=== PATIENT | male | born 1955 | race Caucasian/White ===

== ENCOUNTER 2018-01-03 07:04 | Day surgery (SDC) | payer OTHER ==
[2018-01-02 14:39] VITALS: BMI 30.7
--- NOTE | 2018-01-02 22:44 | HP ---
This is a 62-year-old male who comes for colonoscopy for colon cancer screening. The patient has no specific symptoms. He has normal . No family history of colon cancer. ALLERGIES: None. SOCIAL HISTORY: The patient smokes. He drinks alcohol socially. MEDICAL ILLNESSES: 1. Coronary artery disease, stretched status and placement. 2. Chronic obstructive pulmonary disease. 3. Hypertension. 4. . PHYSICAL EXAMINATION: VITAL SIGNS: Pulse is 70, blood pressure 130/80. HEENT: Conjunctivae clear. CARDIOVASCULAR: First and second heart sounds normal. LUNGS: Clear to auscultation. ABDOMEN: Soft. No organomegaly. No tenderness. No masses. Bowel sounds are normal. EXTREMITIES: Reveal no edema. ADMITTING DIAGNOSES: A 62-year-old male comes for colonoscopy for colon cancer screening.
[2018-01-03] MEDS ORDERED: PROPOFOL 200 MG/20 ML VIAL ONE (13:33)
--- NOTE | 2018-01-07 10:59 | OP ---
DATE OF PROCEDURE: 01/03/2018 SURGEON: Gracie Jensen M.D. OPERATIVE PROCEDURE: Colonoscopy with cautery. PREOPERATIVE DIAGNOSIS: Colon cancer screening. POSTOPERATIVE DIAGNOSES: 1. Diffuse colonic diverticulosis, mild, but seen all the way to the right colon. 2. Broad based sessile polyp descending colon, status post cautery with good hemostasis. 3. Large sessile polyp sigmoid colon, status post snare cautery. The polyp was too large and I coul d not remove completely. Two large pieces removed. PROCEDURE IN DETAIL: The patient was placed on his left lateral position and was given sedation by A nesthesia Department. A rectal exam was performed and the exam was normal. A Pentax video colonosco pe was introduced into the rectum and advanced all the way to the cecum. The prep was excellent. Th e mucosa appeared normal throughout the colon. The exam was very difficult because of the redundant colon. Also, the belly breathing. This constant movement affected the quality of the exam because o f the belly breathing. The appendical opening, ileocecal valve, cecum, no polyps seen. The ascendin g colon showed occasional diverticula. The hepatic flexure, transverse colon showed pathology for oc casional diverticula. Over the descending colon the patient found to have a broad-based sessile poly p. This was removed without difficulty with a snare cautery. There was another long flat polyp clos e the same location could not be removed and also very difficult to visualize. Sometimes you could s ee it and sometimes not. The scope was advanced back and forth several times in the sigmoid colon, a ll the way to transverse colon several times. Although once or twice I could visualize a polyp at th e , the patient and I could not get a good hold of the polyp. There was a large polyp in the sigmoid colon area. This was removed piecemeal with 2 large pieces. The patient has some more po lyps left behind. The procedure was very lengthy, it was almost an hour and 25 minutes spent with e procedure because of the belly breathing and constant movement and not able to really get good hold of the polyp. RECOMMENDATIONS: I did meet with Mr. Rocha and son-in-law. I explained to them about the poly pectomy. He was advised to start a clear liquid diet today and start a regular diet tomorrow if he h as no bleeding or abdominal pain. He is advised to go to the ER if he starts having any bleeding. Ambrosio denney is also informed that he will probably need a repeat colonoscopy in the next 4-6 weeks because I wa s not able to remove the polyp altogether.
--- NOTE | 2018-01-07 15:05 | OP ---
DATE OF PROCEDURE: 01/03/2018 SURGEON: Sea Osorio OPERATIVE PROCEDURE: Colonoscopy with polypectomy. PREOPERATIVE DIAGNOSIS: A 62-year-old male undergoing colonoscopy for colon cancer screeni ng. POSTOPERATIVE DIAGNOSES: 1. Large broad based sessile polyp descending colon, status post polypectomy. 2. Large broad based sessile pedunculated polyp sigmoid colon, status post snare cautery. The polyp was very large and I could not remove the entire polyp. The polyp was removed piecemeal, but still have a small piece that remained. 3. A broad based sessile polyp around the splenic flexure area, possibly transverse colon nodule. 4. Diverticular disease. PROCEDURE IN DETAIL: The patient was placed on his left lateral position and was given sedation by A nesthesia Department. A rectal exam was done before the scope was advanced into the rectum. No lesi ons felt on rectal exam. A Pentax video colonoscope was introduced into the rectum and advanced all the way in the cecum. The prep was very good. The exam was difficult because of the tortuous colon and also patient tended to breathe with the abdominal wall and there was constant movement. The appe ndical opening, ileocecal valve, cecum, no pathology seen. Withdrawal from the cecum, ascending colo n and hepatic flexure, no pathology seen. The transverse colon, lesion. Over the distal trans verse colon, and splenic flexure area the patient was found to have a very broad based sessile polyp. The polyp was very difficult to locate. Although the polyp subsequently, when I attempted to remov e it, I could not really locate the polyp. The scope advanced back and forth several times from the sigmoid colon all the way to the cecum. The scope was carefully withdrawn. Again, I could not reall y locate the polyp. He had a very large broad based sessile polyp in the descending colon. This was removed with snare cautery. He had another large polyp, a broad based thick stalk in the sigmoid co susana area. The polyp was too large and was difficult to remove the entire polyp. The polyp was remov ed piecemeal. I made 2 attempts to remove, but still some of polyp was left behind. He did have sig moid diverticula. Rectum revealed hemorrhoids. The procedure was very prolonged and very lengthy an d it was over an hour and a half. Due to the above reason, I elected to terminate the procedure and bring the patient back in a couple of months for repeat colonoscopy. DISCHARGE PLANNING: This is a 62-year-old male who came in for a colonoscopy for cancer nathen collier. Underwent colonoscopy with polypectomy. DISCHARGE RECOMMENDATIONS: 1. The patient was advised to call me if he develops abdominal pain, hematochezia. 2. To come back to clinic in 2 weeks. 3. Repeat colonoscopy in 2 months.
== END 2018-01-03 12:03 | disposition home or self-care (01) ==
LOC: SDC 07:04
PROVIDERS: ATTEND Internal Medicine Gastroenterology
PROC: 0DBM8ZX Excision of Descending Colon, Via Natural or Artificial Opening Endoscopic, Diagnostic (ICD-10-PCS; principal; 2018-01-03)
PROC: 0DBN8ZX Excision of Sigmoid Colon, Via Natural or Artificial Opening Endoscopic, Diagnostic (ICD-10-PCS; principal; 2018-01-03)
DX: Z12.11 Encounter for screening for malignant neoplasm of colon (principal); D12.4 Benign neoplasm of descending colon; D12.5 Benign neoplasm of sigmoid colon; K57.30 Diverticulosis of large intestine without perforation or abscess without bleeding; K64.9 Unspecified hemorrhoids; F17.200 Nicotine dependence, unspecified, uncomplicated; I25.10 Atherosclerotic heart disease of native coronary artery without angina pectoris; I10 Essential (primary) hypertension; J44.9 Chronic obstructive pulmonary disease, unspecified; Z79.02 Long term (current) use of antithrombotics/antiplatelets; Z79.899 Other long term (current) drug therapy
CPT/HCPCS: 88305

== ENCOUNTER 2018-05-16 06:46 | Day surgery (SDC) | payer OTHER ==
[2018-05-15 11:37] VITALS: BMI 31.4
--- NOTE | 2018-05-15 22:04 | HP ---
HISTORY OF PRESENT ILLNESS: This is a 63-year-old male referred to me by Dr. Humphries for a colonoscopy for colon cancer screening. He had done colonoscopy on 12/13/2017 and was found to have 2 large sessile polyps. One was in the sigmoid colon and another one above the splenic flexure, distal transverse colon. The patient had one of his colon polyps removed. The other polyp could not be taken completely. The polyp is an adenoma and villous adenomas. The patient was taken clopidogrel for his atrial fibrillation. This was stopped about 5 days ago. The patient comes in for repeat colonoscopy because of the colon polyps not removed completely. ALLERGIES: NONE. MEDICAL ILLNESSES: 1. Atrial fibrillation. 2. Hypertension. 3. COPD.. 5. Arthritis. PHYSICAL EXAMINATION: GENERAL: He is heavyset, appears comfortable. VITAL SIGNS: Pulse is 70. Blood pressure 130/70. HEENT: Conjunctivae clear. NECK: Supple. No adenitis or thyromegaly noted. CARDIOVASCULAR: First and second heart sounds normal. LUNGS: Clear to auscultation. ABDOMEN: Soft. No organomegaly. No tenderness. No masses. ADMITTING: Colon polyp. PLAN: Colonoscopy and polypectomy. Job ID: [id number] MTDD
--- NOTE | 2018-05-16 10:31 | OP ---
DATE OF PROCEDURE: 05/16/2018 OPERATIVE PROCEDURE: 1. Colonoscopy and polypectomy. 2. Colonoscopy with 10-Trinidadian heater probe therapy at polypectomy site. PREOPERATIVE DIAGNOSIS: Colon polyp. POSTOPERATIVE DIAGNOSES: 1. Scattered sigmoid diverticular disease. 2. Hemorrhoids. 3. Broad-based sessile polyp, sigmoid colon, status post snare cautery with good hemostasis. 4. Sessile polyp, sigmoid colon, status post snare cautery with good hemostasis. 5. Very large broad-based sessile polyp, transverse colon, status post snare cautery with mild bleeding after polypectomy. The polypectomy site was cauterized with a 10-Trinidadian heater probe. DESCRIPTION OF PROCEDURE: The patient was placed on his left lateral position and was given sedation by Anesthesia Department. A rectal exam was done before the scope was advanced into the rectum. No lesions felt on rectal exam. A Pentax video colonoscope was introduced into the rectum and advanced all the way to the cecum. The patient had some pockets of recent stool. The mucosa appears normal. The ileocecal area, cecum, ascending colon, hepatic flexure, no pathology seen. The transverse colon showed a broad-based sessile polyp. This was easily removed with snare cautery; however, the marginal polypectomy site did not cauterize very well and had mild bleeding seen. This was cauterized with a 10-Trinidadian heater probe with good hemostasis. The remainder of transverse colon, splenic flexure, descending colon, no pathology seen. There was a very large broad-based sessile polyp over the sigmoid colon area around 40 cm from the margin. This was removed with snare cautery with good hemostasis. Developed small polyp in same location. This was again removed by snare cautery. DISCHARGE PLANNING: This is a 63-year-old male with previous colonoscopy and polypectomy. The patient had a very large polyp in the sigmoid colon area, which could not be completely removed. The patient came for followup colonoscopy and underwent colonoscopy and polypectomy. DISCHARGE RECOMMENDATIONS: 1. May resume his Plavix as before, but there is a risk of bleeding because of the large broad-based sessile polyp. 2. The patient was advised to call me if he develops any abdominal pain, hematochezia. In the absence of any of the symptoms, come back to me in 2 weeks. Job ID: [id number]
[2018-05-16] MEDS ORDERED: PROPOFOL 200 MG/20 ML VIAL ONE (14:33)
[2018-05-16] MEDS ORDERED: Lidocaine 1% PF 5 ML VIAL ONE (14:33)
== END 2018-05-16 10:15 | disposition home or self-care (01) ==
LOC: SDC 06:46
PROVIDERS: ATTEND Internal Medicine Gastroenterology
PROC: 0DBN8ZX Excision of Sigmoid Colon, Via Natural or Artificial Opening Endoscopic, Diagnostic (ICD-10-PCS; principal; 2018-05-16)
PROC: 0DBL8ZX Excision of Transverse Colon, Via Natural or Artificial Opening Endoscopic, Diagnostic (ICD-10-PCS; principal; 2018-05-16)
DX: Z12.11 Encounter for screening for malignant neoplasm of colon (principal); D12.5 Benign neoplasm of sigmoid colon; D12.3 Benign neoplasm of transverse colon; K57.30 Diverticulosis of large intestine without perforation or abscess without bleeding; K64.9 Unspecified hemorrhoids; I48.91 Unspecified atrial fibrillation; I10 Essential (primary) hypertension; J44.9 Chronic obstructive pulmonary disease, unspecified; M19.90 Unspecified osteoarthritis, unspecified site; Z86.010 Personal history of colon polyps; Z79.02 Long term (current) use of antithrombotics/antiplatelets; Z79.899 Other long term (current) drug therapy
CPT/HCPCS: 88305; J2001; J2704

== ENCOUNTER 2018-09-30 08:20 | Inpatient (IN) | payer OTHER ==
--- NOTE | 2018-09-30 08:32 | CT ---
CT Brain WO Con: 09/30/2018 12:00 AM CLINICAL HISTORY: Level 1 stroke; right-sided weakness; last seen normal at 0700 hours this morning. IMAGING TECHNIQUE: Multiple CT images were obtained of the brain without IV contrast. COMPARISON: None. FINDINGS: Infarct: No acute infarct is evident. There is mild chronic small vessel white matter ischemic alfaro e. Hemorrhage: None.. Hydrocephalus: None.. Basal cisterns: Normal.. Cerebral parenchyma: There is a prominent perivascular space versus remote inferior right globus pall idus lacunar infarct seen on the right. Small calcifications are seen within the globus pallidus.. Midline shift: None.. Cerebellum: Normal. Brainstem: Normal. OTHER: Calvarium: Intact.. Visualized Paranasal sinuses: There is mild mucosal thickening within the ethmoid air cells.. Extracranial soft tissues:Normal. IMPRESSION: 1. No acute intracranial abnormality. 2. Findings called to Dr. Estrada at 8:27 AM on September 30, 2018. 3. Mild chronic small vessel white matter ischemic change. 4. Mild paranasal sinus disease
[2018-09-30 08:46] LABS: #Basophils 0.1 thou/uL (0.0-0.2); #Eosinphils 0.4 thou/uL (0.0-0.7); #Lymphocytes 2.4 thou/uL (1.20-3.40); #Monocytes 0.6 thou/uL (0.11-0.59); #Neutrophils 7.2 thou/uL (1.40-6.50); %Basophils 1.2 % (0.0-1.0); %Eosinophils 3.9 % (0.0-10.0); %Monocytes 5.4 % (0.0-10.0); %Neutrophils 67.5 % (42.0-75.0); Hemoglobin 15.9 g/dL (14.0-18.0); Mean Corpuscular HGB CONC 32.6 g/dL (32.0-36.0); Mean Corpuscular Hemoglobin 30.3 pg (27.0-31.0); Mean Corpuscular Volume 92.8 fL (78.0-98.0); Mean Platelet Volume 7.3 fL (7.4-10.4); Platelet Count 216 thou/uL (130-400); RBC Distribution Width 12.7 % (11.5-14.5); Red Blood Cell (RBC) Count 5.25 mill/uL (4.70-6.10); White Blood Cell (WBC) Count 10.7 thou/uL (4.8-10.8)
[2018-09-30 08:50] LABS: PTT 28.1 SEC (22.9-36.1)
[2018-09-30 08:59] LABS: ALT (SGPT) 17 U/L (8-55); AST (SGOT) 15 U/L (5-34); Albumin 3.9 g/dL (3.4-4.8); Alkaline Phosphatase 63 U/L (40-150); Anion Gap 12 mmol/L (10-20); BUN (Urea Nitrogen) 20 mg/dL (8.4-25.7); Bilirubin, Total 0.7 mg/dL (0.2-1.2); CK (CPK) 82 U/L (30-200); Calc. Creatinine Clearance 0 mL/min (70-130); Calcium 9.9 mg/dL (7.8-10.44); Carbon Dioxide 25 mmol/L (23-31); Chloride 105 mmol/L (98-107); Estimated GFR-MDRD 46; Globulin 2.8 g/dL (2.4-3.5); Glucose 116 mg/dL (80-115); Potassium 4.9 mmol/L (3.5-5.1); Protein, Total 6.7 g/dL (5.8-8.1); Sodium 137 mmol/L (136-145)
--- NOTE | 2018-09-30 09:09 | RAD ---
PORTABLE CHEST ONE VIEW: 09/30/2018 8:58 a.m. HISTORY: Altered mental status. Right-sided numbness. COMPARISON: 12/29/2012 FINDINGS: Left-sided pacemaker device remains in place. The heart size is normal. Evidence of old granulomato us disease is again seen. The lungs are well expanded without lobar consolidation, pneumothoraces, f rank pulmonary edema, or pleural effusions. IMPRESSION: No acute process. POS: TPC
[2018-09-30] MEDS ORDERED: Aspirin Chewable 81 MG TAB ONE (09:12)
--- NOTE | 2018-09-30 09:38 | CT ---
CT ANGIOGRAM HEAD WITH CONTRAST: CT ANGIOGRAM NECK WITH CONTRAST: 09/30/2018 8:36 a.m. HISTORY: A 63-year-old male with acute stroke symptoms: right upper extremity weakness and hypesthesia. This level I stroke alert protocol result was called by Dr. Bolivar to Dr. Estrada at 9:06 a.m. on 10/01/19 19. The right parotid mass and recommendation for ENT consultation, and the severe carotid stenoses, were discussed. TECHNIQUE: IV injection of 100 mL of Isovue-370. Arterial bolus chasing technique scan performed from slightly superior to the cornelia to the vertex of the head. Coronal and sagittal 3D MIP reconstructions, and original axial images, evaluated. FINDINGS: There is a well circumscribed, homogeneously moderately hyperdense mass at the inferior aspect of the superficial lobe of the right parotid gland. There is an exophytic component protruding inferior an d medial to the parotid gland. The mass measures approximately 3.7 x 3.3 x 4.2 cm. No cervical lymp hadenopathy. Extensive calcified and noncalcified atheromatous plaque visualized in most of the major arteries of the neck. Streak artifact from adjacent dense IV contrast bolus in the left subclavian vein and left brachiocep halic vein, and streak artifact from left subclavian pacemaker leads and generator, result in poor vi sualization of much of the left subclavian artery. Heavy atherosclerotic calcified plaque throughout the proximal to mid left subclavian artery. Brachiocephalic: Heavily calcified plaque. No high-grade stenosis identified. Right subclavian: Heavily calcified plaque with mild to moderate stenosis, proximally. Right common carotid: Multifocal plaque scattered throughout. No high-grade stenosis identified. M ild stenosis at origin. Right internal carotid: Calcified and noncalcified plaque causes irregularity and mild stenosis prox imally. Noncalcified plaque causes focal severe stenosis, located at a point approximately 1 cm dist al to the origin. The rest of the mid and distal cervical right internal carotid artery is diffusely narrow in caliber. Right carotid siphon: Heavily calcified atheromatous plaque makes it difficult to evaluate the calib er of the vessel. Left common carotid: Bovine common origin with brachiocephalic from aortic arch. Scattered calcifie d plaque throughout. Left internal carotid: Heavily calcified plaque at the origin of the internal carotid artery, extend ing approximately 2 cm distally. Estimated approximately 75% luminal stenosis at the proximal left in ternal carotid, a distance of approximately 0.5 to 1 cm from origin. The rest of the cervical left i nternal carotid has normal caliber. Left carotid siphon: Heavily calcified plaque makes it difficult to evaluate diameter. Right vertebral: Origin difficult to evaluate because of heavily calcified plaque at the brachioceph alic artery. Possible severe stenosis at origin. No high-grade stenosis in the rest of the cervical right vertebral. Left vertebral: Origin difficult to evaluate. Possible severe stenosis at origin. No high-grade st enosis in the rest of the cervical left vertebral. Basilar: Normal caliber. Intracranial vertebral: No focal short-segment acquired high-grade stenosis. Posterior cerebrals: Normal on the right. origin but otherwise normal on left. Superior cerebellars: Visualized on the right. Difficult to identify on the left. Right MCA: No occlusion or thrombus in the M1 segment. Left MCA: No occlusion or thrombus identified in the M1 segment. Bilateral ACAs: No high-grade stenosis identified at the A1 and A2 segments. Anterior communicating artery patent. IMPRESSION: 1. Scattered severe atherosclerotic disease. 2. Severe stenosis at the proximal right internal carotid, estimated to be approximately 75% to 90%. The rest of the cervical right internal carotid is diffusely moderately-severely narrow in caliber. 3. Severe stenosis at the proximal left internal carotid, estimated to be approximately 75%. 4. No M1 segment occlusion or thrombosis. 5. 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 Recommend otolaryngology consul tatleatha. CODE CR POS: CET
[2018-09-30 10:54] LABS: Bilirubin Negative (Negative); Blood, Urine Negative (Negative); Glucose, Urine (Dipstick) Negative (Negative); Leukocyte Negative (Negative); Nitrite Negative (Negative); Protein, Urine (Dipstick) Negative (Neg-Trace); Urobilinogen 0.2 mg/dL (Less than 2)
[2018-09-30 10:56] LABS: Clarity Clear (Clear)
[2018-09-30] MEDS ORDERED: Ondansetron ODT 4 MG TAB PO PRN (11:17)
[2018-09-30] MEDS ORDERED: Acetaminophen 325 MG TAB PO PRN (11:17)
[2018-09-30 12:06] LABS: Cardiac Risk 4.3 (Less than 4.5)
[2018-09-30 12:10] VITALS: BMI 30.6
[2018-09-30] MEDS ORDERED: ISOVUE-370 76%-LOCM 1 ML ONE (13:04)
--- NOTE | 2018-09-30 13:36 | PDOC.FPRHP ---
- History of Present Illness Chief Complaint: Right sided numbness and tingling History of Present Illness: Patient is a 63yo M with PMHx of HLD, HTN, multiple kidney stents, and a defibrillator non-compatible with MRI that presented today after the onset of right-sided numbness and tingling. He states this began at 630am this morning while he was lying on the couch awake. He states his right arm began to feel different, like it had fallen asleep, and then he noticed the same feeling in his right leg, and then the right side of his face. He denies noticing any weakness. He denies that anything like this has ever happened before. 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 CXR: no acute process trop neg x1, glucose wnl, 324mg aspirin, 500ml NS - Allergies/Adverse Reactions Allergies Allergy/AdvReac Type Severity Reaction Status Date / Time No Known Allergies Allergy Verified 09/30/18 11:52 - Home Medications Medication Instructions Recorded Confirmed Type Atorvastatin Calcium 20 mg PO HS 01/02/18 09/30/18 History Carvedilol 12.5 mg PO BID 01/02/18 09/30/18 History Clopidogrel Bisulfate [Clopidogrel] 1 tab PO DAILY 01/02/18 09/30/18 History Furosemide 1 tab PO ASDIR 01/02/18 09/30/18 History Umeclidinium Brm/Vilanterol Tr 1 inh IH DAILY 01/02/18 09/30/18 History [Anoro Ellipta] Ubidecarenone [Co Q-10] 100 mg PO DAILY 05/15/18 09/30/18 History Candesartan Cilexetil 32 mg PO DAILY 09/30/18 09/30/18 History - History PMHx: CHF, HTN, PVD, HLD PSHx: Left inguinal hernia repair, Renal stents, Defibrillator FHx:Brother:stroke Social: Smokes 1/2 PPD for 50 years, denies alcohol and drug use - Review of Systems General: denies: fever/chills, fatigue Eyes: denies: eye pain, vision changes ENT: denies: nasal congestion, rhinorrhea Respiratory: denies: shortness of breath Cardiovascular: denies: chest pain, palpitation Gastrointestinal: denies: nausea, vomiting Skin: denies: rashes, jaundice Musculoskeletal: denies: pain Neurological: reports: numbness. denies: weakness Psychological: denies: anxiety, depression - Vital signs BP: [135/72] HR: [71] RR: [18] Tmax: [98.1] Pox: [97]% on [RA] Wt: [86.046kg] - Physical Exam Constitutional: NAD, awake, alert and oriented HEENT: normocephalic and atraumatic, EOMI, no scleral icterus, grossly normal hearing Chest: no-tender to palpation Heart: RRR, normal S1/S2, no murmurs/rubs/gallops Lungs: CTAB, no respiratory distress, good air movement Abdomen: soft, non-tender, bowel sounds present -Musculoskeletal: RUE 4/5, LUE 5/5 RLE 4/5, LLE 5/5 -Neurological: Cranial nerve V1, V2, V3 parasthesias/numbness on right Parasthesias/numbness noted on entire right arm, entire right leg Skin: no rash/lesions, capillary refill <2 seconds Heme/Lymphatic: no unusual bruising or bleeding Psychiatric: normal mood and affect FMR H&P: Results - Labs Result Diagrams: 09/30/18 08:24 09/30/18 08:24 Lab results: WBC 10.7 thou/uL (4.8-10.8) 09/30/18 08:24 Hgb 15.9 g/dL (14.0-18.0) 09/30/18 08:24 Hct 48.7 % (42.0-52.0) 09/30/18 08:24 MCV 92.8 fL (78.0-98.0) 09/30/18 08:24 Plt Count 216 thou/uL (130-400) 09/30/18 08:24 Neutrophils % 67.5 % (42.0-75.0) 09/30/18 08:24 Sodium 137 mmol/L (136-145) 09/30/18 08:24 Potassium 4.9 mmol/L (3.5-5.1) 09/30/18 08:24 Chloride 105 mmol/L (98-107) 09/30/18 08:24 Carbon Dioxide 25 mmol/L (23-31) 09/30/18 08:24 BUN 20 mg/dL (8.4-25.7) 09/30/18 08:24 Creatinine 1.54 mg/dL (0.7-1.3) H 09/30/18 08:24 Glucose 116 mg/dL (80-115) H 09/30/18 08:24 Calcium 9.9 mg/dL (7.8-10.44) 09/30/18 08:24 Total Bilirubin 0.7 mg/dL (0.2-1.2) 09/30/18 08:24 AST 15 U/L (5-34) 09/30/18 08:24 ALT 17 U/L (8-55) 09/30/18 08:24 Alkaline Phosphatase 63 U/L (40-150) 09/30/18 08:24 Creatine Kinase 82 U/L (30-200) 09/30/18 08:24 B-Natriuretic Peptide 61.2 pg/mL (0-100) 09/30/18 08:24 Serum Total Protein 6.7 g/dL (5.8-8.1) 09/30/18 08:24 Albumin 3.9 g/dL (3.4-4.8) 09/30/18 08:24 Lipase 16 U/L (8-78) 09/30/18 08:24 Urine Ketones Negative mg/dL (Negative) 09/30/18 10:27 Urine Blood Negative (Negative) 09/30/18 10:27 Urine Nitrite Negative (Negative) 09/30/18 10:27 Ur Leukocyte Esterase Negative (Negative) 09/30/18 10:27 Trop: 0.018 PTT:13 INR: 1.0 - Radiology Interpretation CT scan - head Status: report reviewed by me Additional comment: CT brain without contrast: no acute intracranial abnormality CTA head/neck: severe scattered atherosclerotic disease, severe stenosis of the proximal left internal carotid, no M1 occlusion or thrombosis, 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 Chest x-ray Status: report reviewed by me (CXR: no acute process) FMR H&P: A/P - Problem List (1) CVA (cerebral vascular accident) Current Visit: Yes Status: Acute Code(s): I63.9 - CEREBRAL INFARCTION, UNSPECIFIED (2) CHF (congestive heart failure) Current Visit: Yes Status: Acute Code(s): I50.9 - HEART FAILURE, UNSPECIFIED (3) HTN (hypertension) Current Visit: Yes Status: Acute Code(s): I10 - ESSENTIAL (PRIMARY) HYPERTENSION (4) HLD (hyperlipidemia) Current Visit: Yes Status: Acute Code(s): E78.5 - HYPERLIPIDEMIA, UNSPECIFIED (5) Parotid mass Current Visit: Yes Status: Acute Code(s): K11.8 - OTHER DISEASES OF SALIVARY GLANDS - Plan 63M with PMHx of HTN, HLD, multiple kidney stents, and CHF with a defibrillator presented with right-sided numbness and parasthesias s/p CVA #CVA -no reported prior CVA -CT head: no acute intracranial abnormality -CTA head/neck demonstrated scattered severe atherosclerotic disease, severe stenosis of the proximal right internal carotid (75-90%), severe stenosis of cervical right internal carotid, severe stenosis of the proximal left internal carotid (75%) -given aspirin and NS in the ED -NIHSS score 1, Dr. Farmer determined not candidate for TPA -no MR brain 2/2 defibrillator non-compatible with MRI -allow for permissive HTN -PRN labetalol for SBP>220 -high intensity statin, total cholesterol 120 -plavix -aspirin -CV sx consulted, appreciate recs -NPO, if no sx planned will alter diet -CBC/CMP in am -Echo ordered, pending -TSH 1.02, wnl #parotid mass -incidental parotid mass seen on CT head -patient has no complaints -recommend f/u outpatient #HTN -hold home meds for permissive HTN -see above #HLD -high intensity statin #CHF with defibrillator -on tele obs -patient denies any chest pain -continue to monitor #kidney stents -creatinine 1.54 -BUN 20 -GFR 46 -will monitor CMP tmrw Fluids: 100ml/hr NS DVT proph: SCDs Diet: NPO Code Status: full code Dispo: obs for CVA workup FMR H&P: Upper Level - Plan Date/Time: 09/30/18 1331 63 yo male presents with right sided numbness, with CTA evidence concerning for severe stenosis in bilateral ICAs admitted for a stroke rule out. BP:135/72 HR: 71RR: 18Tmax: 98.1 Pox: 97% on Wt: 86.046kg PE: Decreased sensation right face, arm, leg; strength 5/5; CN intact Decreased BS bilaterallyt Distant heart sounds, RRR Abdomen obese, nontender Labs: Cr 1.[address] Hd w/o-negative for a hemorrhagic cva CTA Head and Neck-evidence of diffuse stenosis, moderate to severe in the right and left ICA A/P: CVA rule out- -New right sided numbness and tingling face=arm=leg with CTA head and neck showing evidence of moderate to severe stenosis of ICA. Will admit to inpatient stroke, and consult CV surgery. Neurosurgery consulted in the ED and pt not a TPA candidate. Pt not able to get MRI d/t having a defibrillator. Will obtain a lipid profile, tsh, mag, phosph, echo, and repeat labs in the AM. Pt currently on Plavix and aspirin for a hx of PAD with stents placed. No prior hx of CVA or MS. PMhx of HTN, PAD, HLD. NIH score of 1, not a TPA candidate. Will place on high intensity statin and continue aspirin and Plavix. parotid mass -incidental parotid mass seen on CT head -recommend outpatient follow-up with otolaryngology HTN -allow for permissive hypertension -labetalol prn bp>220 systolic HLD -lipid profile and increast statin to high intensity CHF with defibrillator -unable to obtain MRI 2/2 defibrillator Starr Elam MD, PGY-3 have evaluated this patient and agree with findings/ plan as outlined by tax services intern resident. Pertinent changes/additions are listed here. Addendum - Attending - Attending Attestation Date/Time: 09/30/18 1122 I personally evaluated the patient and discussed the management with Dr. Garcia. I agree with the History, Examination, Assessment and Plan documented above with any addition or exceptions noted below. The patient presented with acute onset of right sided tingling and numbness at 6 :30 a.m. The patient states he feels like it is worsening. Pt was nota candidate for TPA. CTA shows stenosis in bilateral ICA's. Will consult CV surgery. Pt will be admitted to stroke and stroke team will be consulted. Start statin. CT also showed a parotid mass, will need ent follow-up. Pt has a defibrillator and cannot have an MRI. Will allow for permissive hypertension. Pt with normal strength on exam. Decreased sensation right vs. left.
[2018-09-30] MEDS: Nicotine 14 MG PATCH TD SCH (14:29)
[2018-09-30] MEDS: Lactated Ringer's 1,000 ML IV SCH (14:30)
[2018-09-30] MEDS ORDERED: Labetalol HCl 100 MG/20 ML VIAL SLOW IVP PRN (14:56)
[2018-09-30] MEDS ORDERED: Clopidogrel Bisulfate 75 MG TAB PO SCH (15:15)
--- NOTE | 2018-09-30 20:43 | PDOC.EVN ---
Event Note - Event Note Event Note: Nurse reported Dr. Bae did not need pt to be NPO. Will not hold meals at this time. Ricardo Aranda, DO
[2018-09-30] MEDS: Atorvastatin Calcium 40 MG TAB PO SCH (21:14)
[2018-10-01] MEDS: Lactated Ringer's 1,000 ML IV SCH ×3 (00:31→21:07)
[2018-10-01 04:54] LABS: #Basophils 0.1 thou/uL (0.0-0.2); #Eosinphils 0.3 thou/uL (0.0-0.7); #Lymphocytes 2.6 thou/uL (1.20-3.40); #Monocytes 0.6 thou/uL (0.11-0.59); #Neutrophils 5.4 thou/uL (1.40-6.50); %Basophils 0.9 % (0.0-1.0); %Eosinophils 3.4 % (0.0-10.0); %Lymphocytes 29.1 % (21.0-51.0); %Monocytes 6.9 % (0.0-10.0); %Neutrophils 59.8 % (42.0-75.0); Hemoglobin 14.8 g/dL (14.0-18.0); Mean Corpuscular HGB CONC 32.4 g/dL (32.0-36.0); Mean Corpuscular Volume 92.4 fL (78.0-98.0); Mean Platelet Volume 7.4 fL (7.4-10.4); Platelet Count 201 thou/uL (130-400); RBC Distribution Width 12.5 % (11.5-14.5); Red Blood Cell (RBC) Count 4.94 mill/uL (4.70-6.10); White Blood Cell (WBC) Count 9.1 thou/uL (4.8-10.8)
[2018-10-01 05:18] LABS: ALT (SGPT) 13 U/L (8-55); AST (SGOT) 14 U/L (5-34); Albumin 3.5 g/dL (3.4-4.8); Alkaline Phosphatase 55 U/L (40-150); Anion Gap 13 mmol/L (10-20); BUN (Urea Nitrogen) 18 mg/dL (8.4-25.7); Bilirubin, Total 0.7 mg/dL (0.2-1.2); Calc. Creatinine Clearance 72 mL/min (70-130); Carbon Dioxide 23 mmol/L (23-31); Chloride 105 mmol/L (98-107); Estimated GFR-MDRD 57; Globulin 2.4 g/dL (2.4-3.5); Glucose 86 mg/dL (80-115); Protein, Total 5.9 g/dL (5.8-8.1); Sodium 137 mmol/L (136-145)
--- NOTE | 2018-10-01 06:21 | PDOC.FM ---
- Subjective Subjective: Patient doing well this morning. No acute events overnight. Denies cp, headaches , sob, abdominal pain. Feeling similar parasthesias/numbness in right face, arm , and leg. He does say his face and arm may be slightly improved from yesterday. He can move all extremities and muscles of his face. States he feels like he would be unstable trying to get up from bed because his right leg still feels numb. Per patient Dr. Bae cv sx discussed with patient that he would likely not do anything until at least tomorrow. - Objective MAR Reviewed: Yes Vital Signs & Weight: Vital Signs (12 hours) Temp Pulse Resp BP Pulse Ox 10/01/18 04:00 98.0 F 65 17 119/71 95 10/01/18 00:00 98.2 F 63 16 129/74 96 09/30/18 20:00 97.9 F 69 16 135/69 98 Weight Weight 86.046 kg I&O: 09/29/18 09/30/18 10/01/18 06:59 06:59 06:59 Output Total 525 Balance -525 Result Diagrams: 10/01/18 04:30 10/01/18 04:30 EKG Reviewed by me: Yes (normal sinus, 60s) Radiology Reviewed by me: Yes (stenosis of right and left internal carotids, right parotid mass) Phys Exam - Physical Examination Constitutional: NAD HEENT: moist MMs Neck: supple Respiratory: no wheezing, no rales, no rhonchi, clear to auscultation bilateral Cardiovascular: RRR, no significant murmur, no rub Gastrointestinal: soft, non-tender, no distention, positive bowel sounds Musculoskeletal: pulses present strenght: RUE 5/5, LUE 5/5, RLE 4/5, LLE 5/5 Neurological: moves all 4 limbs numbness right v1, v2, v3, right arm, right leg,CN 2-4, 6-12 grossly intact Lymphatic: no nodes Psychiatric: normal affect Skin: no rash Dx/Plan (1) CVA (cerebral vascular accident) Code(s): I63.9 - CEREBRAL INFARCTION, UNSPECIFIED Status: Acute (2) CHF (congestive heart failure) Code(s): I50.9 - HEART FAILURE, UNSPECIFIED Status: Acute (3) HTN (hypertension) Code(s): I10 - ESSENTIAL (PRIMARY) HYPERTENSION Status: Acute (4) HLD (hyperlipidemia) Code(s): E78.5 - HYPERLIPIDEMIA, UNSPECIFIED Status: Acute (5) Parotid mass Code(s): K11.8 - OTHER DISEASES OF SALIVARY GLANDS Status: Acute - Plan Plan: 63M with PMHx of HTN, HLD, multiple kidney stents, and CHF with a defibrillator presented with right-sided numbness and parasthesias s/p CVA #CVA -no reported prior CVA -CT head: no acute intracranial abnormality -CTA head/neck demonstrated scattered severe atherosclerotic disease, severe stenosis of the proximal right internal carotid (75-90%), severe stenosis of cervical right internal carotid,severe stenosis of the proximal left internal carotid (75%) -given aspirin and NS in the ED -NIHSS score 1, Dr. Farmer determined not candidate for TPA -no MR brain 2/2 defibrillator non-compatible with MRI -allow for permissive HTN -PRN labetalol for SBP>220 -high intensity statin, total cholesterol 120 -LR 100ml/hr -TSH 1.02, wnl -plavix -aspirin -CV sx consulted, appreciate recs -Per nursing Dr. Bae does not plan on doing sx for at least today -appreciate further recs -Echo 09/30: -EF 55-60% -mild tricuspid regurgitation -no thrombus is noted in the cardiac chambers -stroke team consult, appreciate recs -OT/PT consult, appreciate recs -neuro consult, appreciate recs #parotid mass -incidental parotid mass seen on CT head -patient has no complaints -recommend f/u outpatient #HTN -hold home meds for permissive HTN -see above #HLD -patient was on atorvastatin 20mg outpatient -high intensity statin, increase to atorvastatin 40mg #CHF with defibrillator -on tele obs, overnight sinus, 60s -patient denies any chest pain -continue to monitor #kidney stents -creatinine 1.27, down from 1.54 yesterday -BUN 18, down from 20 yesterday -GFR 57, up from 46 yesterday -will monitor CMP tmrw Fluids: 100ml/hr NS DVT proph: SCDs Diet: Heart Healthy Code Status: full code Dispo: obs for CVA workup Addendum - Attending - Attending Attestation Date/Time: 10/01/18 1521 I personally evaluated the patient and discussed the management with Dr. Garcia. I agree with the History, Examination, Assessment and Plan documented above with any addition or exceptions noted below. Pt has persistent parasthesias on the right side. He will be seen by therapy. Dr. Bae recommends CEA in the coming days. Will consult neurology. Allowing for permissive hypertension.
--- NOTE | 2018-10-01 09:23 | CON ---
DATE OF CONSULTATION: 09/30/2018 HISTORY OF PRESENT ILLNESS: Mr. Rocha is a 63-year-old gentleman, who was admitted on 09/30 with right-sided head, face, arm, and leg numbness and weakness. He had a right facial droop. He has some degree of aphasia also. He was deemed not a tPA candidate on admission. He has a history of ICD placement after having an echocardiogram showing severely depressed left ventricular function. He says that this was done at the [facility] and he is chronically followed by Dr. Rossi. His most recent echocardiogram according to him shows an ejection fraction in the 60% range. Due to his ICD, he cannot have a MRI performed. CT of the brain was performed, which showed no acute event. He has had a CT angiogram of the neck, which shows bilateral greater than 70% stenoses of the internal carotid at the origin. Chronically, the patient is on statin and Plavix. Currently, he is resting comfortably in bed. He says he has had no change in his symptomatology since admission. PAST MEDICAL HISTORY: 1. Coronary artery disease. 2. Depressed left ventricular function-this has supposedly returned more toward normal after medical treatment. 3. Hypertension. 4. Dyslipidemia. 5. Congestive heart failure. 6. History of peripheral vascular disease, status post multiple kidney stones. 7. Right parotid mass-the patient states he had evaluation a couple years ago, apparently with Ear, Nose And Throat, but he has had no followup. PAST SURGICAL HISTORY: Defibrillator placement. CURRENT MEDICATIONS: 1. Plavix 75 mg daily. 2. Lipitor 20 mg at bedtime. 3. Coreg 12.5 mg b.i.d. 4. Lasix p.r.n. 5. CoQ10 of 100 mg daily. 6. Candesartan 32 mg daily. 7. Anoro Ellipta inhaled daily. ALLERGIES: NONE. SOCIAL HISTORY: He currently smokes up to a pack of cigarettes a day. He does not use alcohol. REVIEW OF SYSTEMS: A 10-point review of systems performed and is negative except as above. PHYSICAL EXAMINATION: GENERAL: This is a well-developed, well-nourished man, resting comfortably. VITAL SIGNS: Temperature is 97.9, pulse is 62 and regular, and blood pressure 115/53. HEENT: Sclerae are nonicteric. Pupils are equal and round bilaterally. He has a palpable right parotid mass. NECK: Supple. There is no adenopathy. I cannot auscultate a bruit. CHEST: Has bilateral wheezes. HEART: Rhythm is regular. ABDOMEN: Soft and nontender. EXTREMITIES: No edema. NEUROLOGIC: He has weakness of both his upper and lower extremities. There is some droop to his face with a smile. He does aguilera words occasionally. The left side . RADIOLOGY: CT angio of his neck was performed. It showed significant calcification within the great vessels. There is some motion artifact in the neck. On the right side, he has at the origin of the internal carotid a significant stenosis with a diminutive carotid artery distal to this. On the left, he also has stenosis of the internal carotid, that is approximately 75%. ASSESSMENT AND PLAN Status post left hemispheric cerebrovascular accident with significant left carotid disease. I would like to manage this with carotid endarterectomy prior to his discharge. Currently he is on aspirin, Plavix, and will need to continue these. I will re-evaluate his exam tomorrow and see where he sits. But this will again need to be managed surgically prior to his discharge. Job ID: [id number]
[2018-10-01] MEDS: Aspirin 81 mg Enteric Coated Tablet PO SCH (09:43)
[2018-10-01] MEDS: Clopidogrel Bisulfate 75 MG TAB PO SCH ×2 (09:43→09:51)
[2018-10-01] MEDS: Nicotine 14 MG PATCH TD SCH (12:29)
--- NOTE | 2018-10-01 13:10 | PQF ---
CLINICAL DOCUMENTATION IMPROVEMENT CLARIFICATION FORM: ICD-10 Updated PLEASE DO AN ADDENDUM TO THE PROGRESS NOTE WITH ANY DOCUMENTATION UPDATES OR ADDITIONS AND CARRY THROUGH TO DC SUMMARY. THANK YOU. DATE: 10/01/18 ATTN: DR. AGUIRRE Please exercise your independent, professional judgment in responding to the clarification form. Clinical indicators are provided on the bottom of this form for your review Please check appropriate box(s): HEART FAILURE: A. TYPE: [ ] Systolic / HFrEF [x] Diastolic / HFpEF [ ] Combined Systolic / Diastolic B. ACUITY [ ] Acute [] Acute on Chronic [x] Chronic [ ] Other diagnosis [ ] Unable to determine In addition, please specify: Present on Admission (POA): [x] Yes [ ] No [ ] Unable to determine For continuity of documentation, please document condition throughout progress notes and discharge summary. Thank You. CLINICAL INDICATORS - SIGNS / SYMPTOMS / LABS H&P: "ACUTE CHF" ECHOCARDIOGRAM: "EJECTION FRACTION IS VISUALLY ESTIMATED AT 55-60%" "LEFT VENTRICULAR SIZE IS NORMAL" NURSING NOTE 09/30: "INSPIRATORY AND EXPIRATORY WHEEZES" RISKS: HTN RENAL STENTS TREATMENT: ECHOCARDIOGRAM CARDIOLOGY MONITORING (This form is maintained as a part of the permanent medical record) 2014 [employer]. All Rights Reserved NIYAH [email or web address] Office: [phone] [facility] MEDICAL CENTERCarleen
[2018-10-01] MEDS: Atorvastatin Calcium 40 MG TAB PO SCH (20:33)
--- NOTE | 2018-10-02 05:14 | PDOC.FM ---
- Subjective Subjective: Patient doing well this morning. Reports that he feels like the numbness of his face and arm have improved, but his leg numbness has only marginally improved if any. Was being wheeled down for cv surgery shortly after evaluation. Tele overnight sinus 60-80s. - Objective MAR Reviewed: Yes Vital Signs & Weight: Vital Signs (12 hours) Temp Pulse Resp BP Pulse Ox 10/01/18 23:47 98.0 F 65 18 147/76 H 97 10/01/18 20:00 98 10/01/18 19:35 98.3 F 84 16 167/74 H 98 Weight Weight 86.046 kg I&O: 09/30/18 10/01/18 10/02/18 06:59 06:59 06:59 Intake Total 770 Output Total 525 350 Balance -525 420 Result Diagrams: 10/02/18 04:58 10/02/18 04:58 EKG Reviewed by me: Yes Phys Exam - Physical Examination HEENT: moist MMs, sclera anicteric Neck: supple Respiratory: clear to auscultation bilateral Cardiovascular: RRR, no significant murmur Gastrointestinal: soft, non-tender, positive bowel sounds Musculoskeletal: no edema Neurological: moves all 4 limbs Numbness of right V1, V2, V3, right arm, right leg Psychiatric: normal affect Skin: normal turgor Dx/Plan (1) CVA (cerebral vascular accident) Code(s): I63.9 - CEREBRAL INFARCTION, UNSPECIFIED Status: Acute (2) CHF (congestive heart failure) Code(s): I50.9 - HEART FAILURE, UNSPECIFIED Status: Acute Qualifiers: Heart failure type: diastolic Heart failure chronicity: chronic Qualified Code(s): I50.32 - Chronic diastolic (congestive) heart failure (3) HTN (hypertension) Code(s): I10 - ESSENTIAL (PRIMARY) HYPERTENSION Status: Acute (4) HLD (hyperlipidemia) Code(s): E78.5 - HYPERLIPIDEMIA, UNSPECIFIED Status: Acute (5) Parotid mass Code(s): K11.8 - OTHER DISEASES OF SALIVARY GLANDS Status: Acute - Plan Plan: 63M with PMHx of HTN, HLD, multiple kidney stents, and diastolic CHF with a defibrillator presented with right-sided numbness and parasthesias s/p CVA #CVA -no reported prior CVA -CT head: no acute intracranial abnormality -CTA head/neck demonstrated scattered severe atherosclerotic disease, severe stenosis of the proximal right internal carotid (75-90%), severe stenosis of cervical right internal carotid,severe stenosis of the proximal left internal carotid (75%) -given aspirin and NS in the ED -NIHSS score 1, Dr. Farmer determined not candidate for TPA -no MR brain 2/2 defibrillator non-compatible with MRI -allow for permissive HTN -PRN labetalol for SBP>220 -high intensity statin, total cholesterol 120 -LR 100ml/hr -TSH 1.02, wnl -plavix -aspirin -CV sx consulted, appreciate recs -Dr. Bae taking to surgery this am -appreciate further recs -Echo 09/30: -EF 55-60% -mild tricuspid regurgitation -no thrombus is noted in the cardiac chambers -stroke team consult, appreciate recs -OT/PT consult, OT recommended rehab vs home with HH, appreciate recs -neuro consult, appreciate recs -cm met with patient yesterday, and he declined inpatient rehab but is open to outpatient physical therapy, will f/u #parotid mass -incidental parotid mass seen on CT head -patient has no complaints -recommend f/u outpatient #HTN -BPs overnight 140-160s/70-80s -will watch BP after sx today and consider restarting home meds vs watching #HLD -patient was on atorvastatin 20mg outpatient -high intensity statin, increase to atorvastatin 40mg #Diastolic CHF with defibrillator -on tele obs, sinus 60s-80s -patient denies any chest pain -continue to monitor #kidney stents -creatinine improved 1.54>1.27>1.17 -BUN 20>18>14 -GFR 46>57>63 -will monitor CMP tmrw Fluids: 100ml/hr LR DVT proph: SCDs Diet: Heart Healthy Code Status: full code Dispo: obs for CVA workup Addendum - Attending - Attending Attestation Date/Time: 10/02/18 2854 I personally evaluated the patient and discussed the management with Dr. Garcia. I agree with the History, Examination, Assessment and Plan documented above with any addition or exceptions noted below. The patient had CEA today. Neurology consult pending. Continue current meds.
[2018-10-02 05:56] LABS: #Basophils 0.1 thou/uL (0.0-0.2); #Eosinphils 0.3 thou/uL (0.0-0.7); #Lymphocytes 2.9 thou/uL (1.20-3.40); #Monocytes 0.7 thou/uL (0.11-0.59); #Neutrophils 5.4 thou/uL (1.40-6.50); %Basophils 0.7 % (0.0-1.0); %Eosinophils 3.2 % (0.0-10.0); %Lymphocytes 31.2 % (21.0-51.0); %Monocytes 7.3 % (0.0-10.0); %Neutrophils 57.6 % (42.0-75.0); Hemoglobin 14.4 g/dL (14.0-18.0); Mean Corpuscular Hemoglobin 31.1 pg (27.0-31.0); Mean Corpuscular Volume 91.3 fL (78.0-98.0); Mean Platelet Volume 7.5 fL (7.4-10.4); Platelet Count 192 thou/uL (130-400); Red Blood Cell (RBC) Count 4.65 mill/uL (4.70-6.10); White Blood Cell (WBC) Count 9.4 thou/uL (4.8-10.8)
[2018-10-02 06:17] LABS: ALT (SGPT) 12 U/L (8-55); AST (SGOT) 18 U/L (5-34); Albumin 3.4 g/dL (3.4-4.8); Alkaline Phosphatase 49 U/L (40-150); Anion Gap 9 mmol/L (10-20); BUN (Urea Nitrogen) 14 mg/dL (8.4-25.7); Bilirubin, Total 0.6 mg/dL (0.2-1.2); Calc. Creatinine Clearance 78 mL/min (70-130); Calcium 9.1 mg/dL (7.8-10.44); Carbon Dioxide 27 mmol/L (23-31); Chloride 106 mmol/L (98-107); Estimated GFR-MDRD 63; Globulin 2.2 g/dL (2.4-3.5); Glucose 81 mg/dL (80-115); Potassium 4.3 mmol/L (3.5-5.1); Protein, Total 5.6 g/dL (5.8-8.1); Sodium 138 mmol/L (136-145)
[2018-10-02] MEDS ORDERED: Nitroglycerin 50 MG/250 ML BOT 250 ML ONE ×2 (06:23→09:47)
[2018-10-02] MEDS ORDERED: Phenylephrine HCL 10 MG/ML VIAL ONE ×2 (06:24→06:35)
[2018-10-02] MEDS ORDERED: Midazolam HCl 2 mg/2 ml Vial ONE (06:25)
[2018-10-02] MEDS ORDERED: Fentanyl 100 MCG/2 ML VIAL ONE ×2 (06:25→09:43)
[2018-10-02] MEDS ORDERED: Protamine Sulfate 50 MG/5 ML VIAL ONE (06:37)
[2018-10-02] MEDS ORDERED: Heparin 5,000 UNITS/ML VIAL ONE (06:37)
[2018-10-02] MEDS: Lactated Ringer's 1,000 ML IV SCH (07:07)
[2018-10-02] MEDS ORDERED: ceFAZolin Sodium (SDC) 2 GM/100 ML BAG ONE (07:13)
[2018-10-02] MEDS ORDERED: Sodium Chloride 0.9% 0 ML ONE (07:14)
[2018-10-02] MEDS ORDERED: CEFAZOLIN 2 GM in Premix Bag 1 BAG IVPB SCH (07:30)
[2018-10-02] MEDS ORDERED: Phenylephrine 10 MG/NS 250 ML 250 ML IVPB PRN (09:25)
[2018-10-02] MEDS ORDERED: Nitroglycerin 50 MG/250 ML BOT 250 ML IVPB PRN (09:25)
[2018-10-02] MEDS ORDERED: Sodium Chloride 0.9% 1,000 ML IV SCH (09:25)
[2018-10-02] MEDS ORDERED: hydrALAZINE 20 MG/ML VIAL SLOW IVP PRN (09:25)
[2018-10-02] MEDS ORDERED: HYDROcodone/Acetaminophen 5/325 mg Tablet PO PRN (09:25)
[2018-10-02] MEDS ORDERED: Acetaminophen 325 MG TAB PO PRN (09:25)
[2018-10-02] MEDS ORDERED: Ondansetron PF 4 MG/2 ML Vial IVP PRN (09:25)
[2018-10-02] MEDS ORDERED: Promethazine HCl 25 MG/ML VIAL IM PRN (10:36)
[2018-10-02] MEDS ORDERED: Promethazine HCl 25 MG/ML VIAL SLOW IVP PRN (10:36)
[2018-10-02] MEDS ORDERED: Ondansetron HCl/PF 4 MG/2 ML Vial IVP PRN (10:36)
[2018-10-02] MEDS: Aspirin 81 mg Enteric Coated Tablet PO SCH (11:54)
[2018-10-02] MEDS: Clopidogrel Bisulfate 75 MG TAB PO SCH (11:54)
[2018-10-02] MEDS: HYDROcodone/Acetaminophen 5/325 mg Tablet PO PRN ×2 (12:14→18:41)
[2018-10-02] MEDS: Nicotine 14 MG PATCH TD SCH (14:05)
[2018-10-02] MEDS: CEFAZOLIN 2 GM, IV Admixture Fee-Chemo 1 UNITS in Sodium Chloride 0.9% 100 ML IVPB SCH ×2 (14:06→22:27)
--- NOTE | 2018-10-02 16:04 | OP ---
DATE OF PROCEDURE: 10/02/2018 PREOPERATIVE DIAGNOSIS: Symptomatic left carotid stenosis. POSTOPERATIVE DIAGNOSIS: Symptomatic left carotid stenosis. PROCEDURE PERFORMED: Left carotid endarterectomy. ANESTHESIA: General endotracheal. ESTIMATED BLOOD LOSS: Less than 100. FINDINGS: High bifurcation in the neck with extension of plaque underneath his digastric muscle. This is a very difficult distal dissection. Patch angioplasty was not performed due to the size of his carotid artery. DESCRIPTION OF PROCEDURE: After consent was obtained, the patient was brought to the operating room and placed in supine position on the operating room table. Appropriate central line was placed and general endotracheal anesthesia was induced. Head was rotated to the right. Ultrasound was used to localize the bifurcation, which was high in his neck. Neck was prepped and draped in usual sterile fashion. Skin incision was made in the sternocleidomastoid and extended through the platysma. The internal jugular lymph node chain was resected and sent for routine pathologic exam. The carotid sheath was entered. Facial vein branches were divided between clips and ties. Hypoglossal and vagus nerves were noted and protected throughout the procedure. The vein and artery to the sternocleidomastoid were divided between clips and ties. The patient was systemically heparinized. After 3 minutes, internal, common, and external carotid arteries were serially clamped. Incision was made on the common carotid artery, extended through the bulb into the internal carotid artery. A 10-German [place] shunt was placed. Antegrade flow was re-established. The plaque was very friable within the internal carotid artery. The artery was approximately 1 cm in diameter. The endarterectomy was begun on the common carotid artery extended through the bulb onto the internal carotid artery. A good tapered distal endpoint was achieved. Medial fibers were debrided. The artery was flushed with heparinized saline. Primary closure was then performed with running 6-0 Prolene suture. Prior to completion, the shunt was removed, and the artery was back bled and flushed with heparinized saline. The suture line was completed. Antegrade flow was re-established at the external carotid artery for 3 minutes, followed by the internal carotid artery. Hemostasis was ensured. A 50 mg of protamine was administered. The wound was copiously irrigated and closed in layers. Dermabond applied to skin. The patient was awakened and neurologically unchanged from his preoperative state. The patient was then transferred to recovery room in stable condition. Job ID: [id number]
[2018-10-02] MEDS: Atorvastatin Calcium 40 MG TAB PO SCH (20:15)
[2018-10-02] MEDS: Calcium Carbonate 500 MG ChewTAB PO PRN (23:36)
--- NOTE | 2018-10-03 01:06 | CON ---
DATE OF CONSULTATION: 10/02/2018 CONSULTING PHYSICIANS: Family Medicine Service. IMPRESSION: 1. Resolving stroke secondary to thromboembolic event due to carotid disease. 2. Status post left carotid endarterectomy. HOSPITAL COURSE: Mr. Rocha is a 63-year-old gentleman with a past history of hyperlipidemia. He was getting ready to get up for the day when he noticed that the right side of his body was numb and heavy. It did not affect his speech. He came in for evaluation. He was outside the window for tPA. His CTA revealed bilateral carotid stenosis of above 75%. His initial CT scan of the brain did not show any ischemic injury. His echocardiogram showed 50% to 55% ejection fraction. He was taken for endarterectomy and is now recovering from it. He reports being compliant with his aspirin, Plavix, and statin prior to admission. PAST MEDICAL HISTORY: Otherwise, unremarkable. FAMILY HISTORY: Noncontributory. MEDICATIONS: Medication list was reviewed. ALLERGIES: NONE. SOCIAL HISTORY: No tobacco use. REVIEW OF SYSTEMS: Ten system review of systems is, otherwise, negative. PHYSICAL EXAMINATION: VITAL SIGNS: Blood pressure 156/82, pulse 75 and normal sinus rhythm, respirations 20. HEENT: Pupils are equal and reactive. Conjunctivae clear. Oropharynx clear. Cranium, normocephalic and atraumatic. NECK: No lymphadenopathy. There is a fresh incision on the left side of the neck. EXTREMITIES: No cyanosis, clubbing, or edema. NEUROLOGIC: He was alert and cooperative. His speech is fluent and clear. Cranial nerves are intact. Motor exam shows good strength in both upper extremities. He has some partial antigravity strength in the right leg. His sensation is subjectively decreased in the right leg and hand. No abnormal movements were seen. SUMMARY: A middle-aged man with acute minor stroke probably from a thromboembolic source. He is now doing well postoperatively. I would continue his current antiplatelet and statin therapy. He will be possibly need to transfer to rehab. Job ID: [id number]
--- NOTE | 2018-10-03 05:26 | PDOC.FM ---
- Subjective Subjective: Patient doing well this morning. Reports of improved numbness on his face and arm, but his leg remains the same. Reports of some abdominal discomfort as he has not had a bowel movement in a few days. Denies chest pain, SOB, nausea, vomiting, headache, dizziness. Confirms that he is open to trying PT/OT outpatient. - Objective MAR Reviewed: Yes Vital Signs & Weight: Vital Signs (12 hours) Temp Pulse Resp Pulse Ox 10/03/18 03:00 98.4 F 10/03/18 00:15 66 19 94 L 10/02/18 23:00 98.2 F 10/02/18 20:00 95 10/02/18 19:00 98.2 F 10/02/18 18:18 66 13 100 Weight Weight 86.046 kg Most Recent Monitor Data Heart Rate from ECG 63 NIBP 149/98 NIBP BP-Mean 115 Respiration from ECG 17 SpO2 96 I&O: 10/01/18 10/02/18 10/03/18 06:59 06:59 06:59 Intake Total 2250 1821.2 Output Total 525 1250 880 Balance -525 1000 941.2 Result Diagrams: 10/02/18 04:58 10/02/18 04:58 Phys Exam - Physical Examination Constitutional: NAD HEENT: moist MMs Neck: supple Respiratory: clear to auscultation bilateral Cardiovascular: RRR, no significant murmur, no rub Gastrointestinal: positive bowel sounds abdominal distention Musculoskeletal: pulses present improved strength in upper and lower extremities, 5/5 for all Neurological: moves all 4 limbs residual face (v1, v2, v3) and arm numbness, leg numbness as before Psychiatric: normal affect Skin: normal turgor Dx/Plan (1) CVA (cerebral vascular accident) Code(s): I63.9 - CEREBRAL INFARCTION, UNSPECIFIED Status: Acute (2) CHF (congestive heart failure) Code(s): I50.9 - HEART FAILURE, UNSPECIFIED Status: Acute Qualifiers: Heart failure type: diastolic Heart failure chronicity: chronic Qualified Code(s): I50.32 - Chronic diastolic (congestive) heart failure (3) HTN (hypertension) Code(s): I10 - ESSENTIAL (PRIMARY) HYPERTENSION Status: Acute (4) HLD (hyperlipidemia) Code(s): E78.5 - HYPERLIPIDEMIA, UNSPECIFIED Status: Acute (5) Parotid mass Code(s): K11.8 - OTHER DISEASES OF SALIVARY GLANDS Status: Acute - Plan Plan: 63M with PMHx of HTN, HLD, multiple kidney stents, and diastolic CHF with a defibrillator presented with right-sided numbness and parasthesias s/p CVA #CVA -no reported prior CVA -CT head: no acute intracranial abnormality -CTA head/neck demonstrated scattered severe atherosclerotic disease, severe stenosis of the proximal right internal carotid (75-90%), severe stenosis of cervical right internal carotid,severe stenosis of the proximal left internal carotid (75%) -given aspirin and NS in the ED -NIHSS score 1, Dr. Farmer determined not candidate for TPA -no MR brain 2/2 defibrillator non-compatible with MRI -high intensity statin, total cholesterol 120 -LR 100ml/hr -TSH 1.02, wnl -plavix -aspirin -CV sx consulted, appreciate recs -Dr. Bae took to sx yesterday, patient doing well post/op -rec that patient can go home today if he is doing well medically -Echo 09/30: -EF 55-60% -mild tricuspid regurgitation -no thrombus is noted in the cardiac chambers -stroke team consult, appreciate recs -OT/PT consult, OT recommended rehab vs home with HH, appreciate recs -neuro consult, Dr. Klein rec continuation of current antiplatelet and statin regimen, with possible rehab -cm met with patient yesterday, states that he would like to do either Home health or OP therapy, but it would be dependent on when his daughter could take him. His current insurance would likely not cover HH #parotid mass -incidental parotid mass seen on CT head -patient has no complaints, has been aware of mass for several years -recommend f/u outpatient #HTN -BPs overnight 90s-100s/60s-70s, 130s-140s/70s-90s this am -will continue to monitor this am and consider restarting home meds vs watching #HLD -patient was on atorvastatin 20mg outpatient -high intensity statin, increase to atorvastatin 40mg #Diastolic CHF with defibrillator -on CCU -patient denies any chest pain -continue to monitor #kidney stents -creatinine improved 1.54>1.27>1.17 -BUN 20>18>14 -GFR 46>57>63 #abdominal distention -miralax, continue to monitor Fluids: SL DVT proph: SCDs Diet: Heart Healthy Code Status: full code Dispo: obs for CVA workup Addendum - Attending - Attending Attestation Date/Time: 10/03/18 3012 I personally evaluated the patient and discussed the management with Dr. Garcia. I agree with the History, Examination, Assessment and Plan documented above with any addition or exceptions noted below. The patient has seen some improvement in the tingling sensation. He has been cleared by CV surg for discharge. This morning he is constipated. Giving miralax and if he has a bowel movement he will be discharged.
[2018-10-03] MEDS: Calcium Carbonate 500 MG ChewTAB PO PRN (05:47)
[2018-10-03] MEDS: CEFAZOLIN 2 GM, IV Admixture Fee-Chemo 1 UNITS in Sodium Chloride 0.9% 100 ML IVPB SCH (05:47)
[2018-10-03] MEDS ORDERED: Polyethylene Glycol 3350 17 GM Packet PO SCH (07:00)
[2018-10-03] MEDS: Milk Of Magnesia 30 ML UDCUP PO ONE ×2 (08:50→11:57)
[2018-10-03] MEDS: Carvedilol 6.25 MG TAB PO SCH ×2 (08:51→17:59)
[2018-10-03] MEDS: Clopidogrel Bisulfate 75 MG TAB PO SCH (08:53)
[2018-10-03] MEDS ORDERED: Aspirin Chewable 81 MG TAB PO SCH (09:00)
[2018-10-03] MEDS ORDERED: Furosemide 40 MG TAB PO SCH (09:00)
[2018-10-03] MEDS: Nicotine 14 MG PATCH TD SCH (12:36)
[2018-10-03] MEDS ORDERED: Senokot 8.6 MG TAB PO SCH (13:30)
[2018-10-03 15:53] VITALS: TEMP 98.1
[2018-10-03 18:00] VITALS: BP 171/90
--- NOTE | 2018-10-04 05:32 | DIS ---
DATE OF ADMISSION: 09/30/2018 DATE OF DISCHARGE: 10/03/2018 ADMITTING RESIDENT: Dr. Viri Garcia MD ADMITTING ATTENDING: Dr. Leonela Callaway MD DISCHARGE RESIDENT: Dr. Viri Garcia MD DISCHARGE ATTENDING: Dr. Leonela Callaway MD CONSULTS: Case management, Dr. Bae from Cardiovascular Surgery, Dr. Klein from Neurology, OT/PT, Stroke team. PROCEDURES PERFORMED: Left carotid endarterectomy, 10/02, findings of high bifurcation in the neck with extension of plaque underneath the digastric muscles. IMAGIN/23, CT brain with and without contrast: No acute intracranial abnormality, mild chronic small vessel white matter ischemic change, mild paranasal sinus disease. 09/30, CT angiography: Scattered severe atherosclerotic disease, severe stenosis at the proximal right internal carotid (75% to 90%), the rest of the cervical right internal carotid is diffusely moderately-severely narrowed in caliber, severe stenosis at the proximal left internal carotid(75%), no M1 occlusion or thrombosis, large mass in the tail of the parotid gland, evidence of primary parotid neoplasm, such as Warthin's tumor, although malignant parotid tumor is not excluded. 09/30, Chest x-ray, no acute process. PRIMARY DIAGNOSES: 1. Cerebrovascular accident secondary to thromboembolic event due to carotid disease. 2. Hypertension. 3. Hyperlipidemia. SECONDARY DIAGNOSES: 1. Diastolic heart failure. 2. Parotid mass. 3. Kidney stent. DISCHARGE MEDICATIONS: 1. Candesartan 32.5mg p.o. daily. 2. Carvedilol 25 mg tablet, 12.5 mg p.o. b.i.d. 3. Clopidogrel 75 mg p.o. daily. 4. Furosemide 40 mg p.o. daily. 5. CoQ10 100 mg p.o. daily. 6. Anoro Ellipta 1 inhalation daily. 7. Aspirin 81 mg p.o. daily. 8. Atorvastatin 40 mg p.o. at bedtime. DISCONTINUED MEDICATIONS: Atorvastatin 20 mg p.o. at bedtime. HISTORY OF PRESENT ILLNESS AND HOSPITAL COURSE: The patient came into ED on after experiencing symptoms of right-sided numbness while lying on his couch awake. He was evaluated with CT head, CT angio, chest x-ray, which showed severe stenosis at his carotid artery. It was determined that he had a CVA secondary to thromboembolic event due to carotid disease. His NIHSS score was determined as 1 and he was not determined to be a candidate for TPA. He was given aspirin, Plavix and a high intensity statin, and permissive hypertension was allowed. He was admitted to the stroke unit, where frequent stroke checks were done. He was evaluated by Dr. Bae from Cardiovascular Surgery, and was thought he was a candidate for surgery. A left carotid endarterectomy was performed on 10/02, and the patient was moved to this ED for further monitoring. He was evaluated by Neurologist, Dr. Klein, who approved his current regimen of aspirin and Plavix , with a high intensity statin. By the day of discharge, he was doing well with improved numbness in his right face and arm, was able to walk on his own with a walker. Dr. Bae approved him for discharge. DISPOSITION: Stable. DISCHARGE INSTRUCTIONS: 1. Location: Home with OT/PT outpatient. 2. Diet: Hearth healthy. 3. Activity: Walking with walker, assistance as needed; no heavy lifting, no driving for next 5 days while on pain medications. 4. Followup: Within 3 to 5 days with primary care for assessment of residual findings status post stroke and ensure OT/PT is set up. Job ID: [id number] MTDD
[2018-10-04] MEDS ORDERED: Polyethylene Glycol 3350 17 GM Packet PO SCH (09:00)
== END 2018-10-03 18:19 | disposition home or self-care (01) | DRG 24 ==
LOC: ERS 08:20 → 2SE 09:12 → CCU 10-02 09:10 → 2SE 10-03 14:49
PROVIDERS: ADMIT Family Medicine; ATTEND Family Medicine
PROC: 03CL3ZZ Extirpation of Matter from Left Internal Carotid Artery, Percutaneous Approach (ICD-10-PCS; principal; 2018-10-02)
DX: I63.131 Cerebral infarction due to embolism of right carotid artery (principal); I50.32 Chronic diastolic (congestive) heart failure; E78.5 Hyperlipidemia, unspecified; I11.0 Hypertensive heart disease with heart failure; Z96.89 Presence of other specified functional implants; R29.701 NIHSS score 1; R47.01 Aphasia; F17.210 Nicotine dependence, cigarettes, uncomplicated; D11.0 Benign neoplasm of parotid gland; R29.810 Facial weakness; I73.9 Peripheral vascular disease, unspecified; Z95.810 Presence of automatic (implantable) cardiac defibrillator
CPT/HCPCS: 36415; 36416; 70450; 70496; 70498; 71045; 80053; 80061; 81003; 82550; 83690; 83880; 84443; 84484; 85025; 85610; 85730; 88184; 88305; 93005; 93306; 94640; 96360; J0360; J0690; J1642; J1644; J2250; J2370; J2720; J3010; J3490; J7620; Q9966